=== PATIENT | female | born 1935 | race Caucasian/White ===

== ENCOUNTER 2017-04-21 14:59 | Emergency (ER) | payer MEDICARE ==
[~2017-04-21] VITALS: Ht 170.2 cm; Wt 83.0 kg
[~2017-04-21 14:59] MED LIST: HYDR-3533 PO; LOSA50TA PO; SYNT25TA
[2017-04-21 15:02] VITALS: BP 122/67; PULSE 77; RESP 18; TEMP 98.3; O2SAT 95
[2017-04-21] MEDS ORDERED: SYNT25TA PO (15:12)
[2017-04-21] MEDS ORDERED: LOSA50TA PO (15:12)
[2017-04-21] MEDS ORDERED: LIDOCAINE HCL 1% PF 10 ML VIAL ONE (15:56)
[2017-04-21] MEDS ORDERED: LIDOCAINE HCL 1% 50 ML VIAL INFIL ONE (16:00)
--- NOTE | 2017-04-21 16:04 | RADRPT ---
EXAM DATE/TIME: 04/21/2017 15:42 [place] COMPARISON: No previous studies available for comparison. INDICATIONS : Tripped and fell about 4 hours ago. Right hand struck a drawer. MEDICAL HISTORY : None. SURGICAL HISTORY : None. ENCOUNTER: Initial ACUITY: 1 day PAIN SCORE: 4/10 LOCATION: Right upper extremity Third digit FINDINGS: Examination of the third digit of the right hand demonstrates no evidence of fracture or dislocation. No radiopaque foreign bodies are seen. The soft tissues are lacerated at the distal third finger. CONCLUSION: 1. A distal third finger laceration. No acute bony abnormality. Remote healed fracture right wrist. Diego Murillo MD on April 21, 2017 at 16:02 Board Certified Radiologist. This report was verified electronically.
[2017-04-21] MEDS ORDERED: TRAM50 PO (16:51)
[2017-04-21] MEDS ORDERED: CEPH-460 PO (16:51)
--- NOTE | 2017-04-21 16:52 | PD ---
HPI Chief Complaint: Laceration/Skin Injury Time Seen by Provider: 15:25 Travel History International Travel<30 days: No Contact w/Intl Traveler<30days: No Traveled to known affect area: No History of Present Illness HPI This is a 81-year-old female here for evaluation of laceration to her right third digit. She cut the finger on the sharp edge of the bathroom drawer when she had a mechanical trip and fall. She denies head injury or loss of consciousness. Patient is not anticoagulated. She denies any other injuries. Injury occurred approximately 4 hours ago. Patient was unable to come to the emergency department immediately because she was caring for her who is very ill. She reports pain in the site of laceration. She denies paresthesia or weakness. Symptom severity is moderate. Tetanus immunization unknown PFSH Past Medical History Hx Anticoagulant Therapy: No Arthritis: Yes Blood Disorders: No Anxiety: Yes Heart Rhythm Problems: No Cancer: No Cardiovascular Problems: Yes High Cholesterol: No Chest Pain: No Congestive Heart Failure: No Diminished Hearing: No Glaucoma: No Genitourinary: No Hypertension: Yes Immune Disorder: No Musculoskeletal: Yes Neurologic: No Psychiatric: No Reproductive: No Respiratory: No Myocardial Infarction: No Thyroid Disease: Yes Tetanus Vaccination: Unknown Influenza Vaccination: Yes Menopausal: Yes Past Surgical History Abdominal Surgery: No AICD: No Arteriovenous Shunt: No Cardiac Surgery: No Ear Surgery: No Endocrine Surgery: No Eye Surgery: No Genitourinary Surgery: No Gynecologic Surgery: Yes (HYSTERECTOMY) Hysterectomy: Yes Insulin Pump: No Oral Surgery: Yes (TONSILECTOMY) Pacemaker: No Thoracic Surgery: No Tonsillectomy: Yes Other Surgery: Yes (FOOT SURGERY, BROW LIFT) Social History Alcohol Use: Yes (WINE) Tobacco Use: No Substance Use: No Allergies-Medications (Allergen,Severity, Reaction): Coded Allergies: Sulfa (Sulfonamide Antibiotics) (Unverified Allergy, Severe, Hives, ) Reported Meds & Prescriptions Reported Meds & Active Scripts Active Keflex (Cephalexin) 500 Mg Cap 500 Mg PO Q6H Ultram (Tramadol HCl) 50 Mg Tab 50 Mg PO Q6H PRN Reported Losartan (Losartan Potassium) 50 Mg Tab 50 Mg PO DAILY Synthroid (Levothyroxine Sodium) 25 Mcg Tab 25 Mcg PO DAILY Review of Systems Except as stated in HPI: all other systems reviewed are Neg General / Constitutional: No: Fever Eyes: No: Visual changes HENT: No: Headaches Cardiovascular: No: Chest Pain or Discomfort Respiratory: No: Shortness of Breath Gastrointestinal: No: Abdominal Pain Genitourinary: No: Dysuria Skin: No Rash Physical Exam Narrative GENERAL: Alert well-appearing 81-year-old female SKIN: Warm and dry. U-shaped 2 cm laceration to the finger pad of the right third digit. No tendon or vascular injury. No foreign body. No nail bed injury. She reports normal sensation distal to the injury. Brisk cap refill. HEAD: Normocephalic. Atraumatic EYES: No scleral icterus. No injection or drainage. NECK: Supple MUSCULOSKELETAL: No cyanosis, or edema. See skin noted above Data Data Last Documented VS Vital Signs Date Time Temp Pulse Resp B/P (MAP) Pulse Ox O2 Delivery O2 Flow Rate FiO2 04/21/17 15:02 98.3 77 18 122/67 (85) 95 Orders Orders Finger ([id number]) (04/21/17 ) Lidocaine 1% Inj (50 Ml) (Xylocaine 1% I (04/21/17 16:00) Lidocaine Pf 1% Inj (Xylocaine-Mpf 1% In (04/21/17 15:56) Tramadol (Ultram) (04/21/17 17:00) Tetanus/Diphtheria Tox Adult (Tetanus/Di (04/21/17 17:00) Ed Discharge Order (04/21/17 16:53) MDM Medical Decision Making Medical Screen Exam Complete: Yes Emergency Medical Condition: Yes Differential Diagnosis Finger laceration, crush injury, finger fracture Narrative Course 81-year-old female here with right third digit laceration. The digit is neurovascular intact. X-ray she was repaired. Tetanus immunization was updated. Procedures Procedure Narrative LACERATION LOCATION: Right third digit LENGTH: 2 cm NUMBER OF STITCHES/LY: 10 REPAIR: The area of the laceration was prepped with Betadine and sterilely draped. Digital block performed using 1% lidocaine. The wound was copiously irrigated and explored without evidence of foreign body, tendon injury or neurovascular injury. The wound was closed using [3-0 Prolene]. This was a SINGLE layer repair. A sterile dressing was applied. The patient was advised to keep the dressing clean and dry. Patient tolerated the procedure well. Diagnosis Primary Impression: Finger laceration Qualified Codes: S61.212A - Laceration without foreign body of right middle finger without damage to nail, initial encounter Referrals: Primary Care Physician Additional Instructions: Sutures need to be removed in 7-10 days. Cleanse the area daily with soap and water. Apply thin layer of antibiotic ointment and cover with a dry dressing. Follow-up with her primary doctor for recheck of the wound. Pain medication as needed. Scripts Cephalexin (Keflex) 500 Mg Cap 500 MG PO Q6H for Infection, #20 CAP 0 Refills Prov: Jemima Hagen 04/21/17 Tramadol (Ultram) 50 Mg Tab 50 MG PO Q6H Y for PAIN, #12 TAB 0 Refills Prov: Jemima Hagen 04/21/17 Disposition: 01 DISCHARGE HOME Condition: Stable Jemima Hagen Apr 21, 2017 16:52
[2017-04-21] MEDS ORDERED: TETANUS/DIPHTHERIA TOXOID ADULT 0.5 ML VIAL IM ONE (17:00)
[2017-04-21] MEDS ORDERED: traMADol HCL 50 MG TAB PO ONE (17:00)
== END 2017-04-21 17:20 | disposition home or self-care (01) ==
LOC: PHEFT 14:59
DX: S61.212A Laceration without foreign body of right middle finger without damage to nail, initial encounter (principal); M19.90 Unspecified osteoarthritis, unspecified site; F41.9 Anxiety disorder, unspecified; I10 Essential (primary) hypertension; E07.9 Disorder of thyroid, unspecified; W01.0XXA Fall on same level from slipping, tripping and stumbling without subsequent striking against object, initial encounter; Z23 Encounter for immunization; Z79.899 Other long term (current) drug therapy; Z88.2 Allergy status to sulfonamides
CPT/HCPCS: 12001; 73140; 90471; 90714